=== PATIENT | female | born 1945 | race Caucasian/White ===

== ENCOUNTER 2016-10-23 11:00 | Outpatient (RCR) ==
[2016-02-13 15:54] VITALS: BMI 27.1
--- NOTE | 2016-10-16 14:34 | RS.OPPTDN ---
Subjective Date of Note: 10/16/16 Visit #: 8 Date of Evaluation: 09/17/16 Payer Source: MEDICARE Treatment Diagnosis: Right shoulder pain, shoulder stiffness, weakness Current Subjective/complaints:: Patient states she still cannot put on her shirts without help. States therapy has helped her some, but still cannot lift her arm forward (shoulder flexion). Pain Assessment - Pain Description Pain Location: right shoulder Current Pain Intensity: mild - Heat/Cryotherapy Treatment: Hot Pack ([id number] to the right shoulder prior to EX. Patient in supine. ) Interventions - Exercise/Activities/Manual Therapy Exercises/Activities: [id number]. PROM to right shoulder, limited range. Isometric shoulder abduction, adduction, and extension, multiple reps. 1# dumbell for short biceps curls, wrist flexion, extension, and supination/pronation. With UE supported, shoulder shrugs and scap retraction in supine. Assisted with light wand for chest press and IR/ER. Ball squeeze between hands for isometric IR, and short range ball lift. In sitting, shoulder shrugs, scap retraction. Table slides into forward flexion and abduction. AAROM of shoulder flexion and abduction. Total minutes of Exercise: 25mins Manual Therapy: NA HOME EXERCISE PROGRAM: Scapular retaction and shrugs, table slides, Codmans and modified cuff series with assist of caregiver. Isometric shoulder add with pillow. Biceps curl with light object. - Objective Findings Observations,measurements,etc.: Active right shoulder flexion 30 degrees or less in sitting. Active assisted to 40-45 degrees. MMT with right shoulder ER trace to poor minus, no improvement noted. - Charges Total Direct Minutes: 25mins Total Treatment Time: 45mins Procedures billed for this date of service:: HP, EX2 Assessment: Will reassess progress with PT next session. Patient Education: Home Exercise Program, Home Safety Comments: HEP with help of caregiver Patient demonstrates compliance with HEP?: Yes Short Term Goals Goal #1: Right shoulder active flexion to 60 degrees. Goal to be met by: 10/10/16 Progress towards Goal:: No Change Goal #2: Right shoulder strength 4-/5 in available range. Goal to be met by: 10/10/16 Goal #3: Patient and caregivers compliant with HEP. Goal to be met by: 10/10/16 Progress towards Goal:: Progressing Goal #4: Pain with AROM <5/10. 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 Goal to be met by: 11/03/16 Progress towards goal: Progressing Comments: with help of caregiver Goal #2: Score on UE functional index improved to less than 59% impairment. Goal to be met by: 11/03/16 Goal #3: R shoulder AROM improved for patient to perform most selfcare and ADL' s. Goal to be met by: 11/03/16 Progress towards goal: No Change Goal #4: Pt able to use right UE with minimal shoulder pain. Goal to be met by: 11/03/16 Progress towards goal: Progressing (Reports she has been able to us right UE some.) Plan PLAN OF CARE EXPIRES ON:: 11/03/16 ORDER # VISITS AND/OR THROUGH DATE: 11/03/16 PLAN: Continue Plan of Care (Continue this week and reassess progress and FOM.)
--- NOTE | 2016-10-18 12:01 | RS.OPPTDN ---
Subjective Date of Note: 10/18/16 Visit #: 9 Date of Evaluation: 09/17/16 Payer Source: MEDICARE Treatment Diagnosis: Right shoulder pain, shoulder stiffness, weakness Current Subjective/complaints:: Patient and caregiver both report patient seems to be doing better with very light activities at home. She states she still needs help with dressing. Pain Assessment - Pain Description Pain Location: right shoulder Current Pain Intensity: mild - Heat/Cryotherapy Treatment: Hot Pack ([id number] to the right shoulder prior to EX. Patient in supine. ) Interventions - Exercise/Activities/Manual Therapy Exercises/Activities: [id number]. PROM to right shoulder, limited range. Isometric shoulder abduction, adduction, and extension, multiple reps. 1# dumbell for short biceps curls, wrist flexion, extension, and supination/pronation. With UE supported, shoulder shrugs and scap retraction in supine. Assisted with light wand for chest press and IR/ER, multiple reps. Ball squeeze between hands for isometric IR, and short range ball lift. In sitting, shoulder shrugs, scap retraction. Table slides into forward flexion and abduction. Ball squeeze and lifts ball off lap. Wand for short range lifts from lap. AAROM of shoulder flexion and abduction. In standing, cuff series for right shoulder forward flexion, short abduction and extension 2s/10reps each. Gave patient and caregiver another copy of cuff series for HEP. Total minutes of Exercise: 28mins Manual Therapy: NA HOME EXERCISE PROGRAM: Scapular retaction and shrugs, table slides, Codmans and modified cuff series with assist of caregiver. Isometric shoulder add with pillow. Biceps curl with light object. - Charges Total Direct Minutes: 28mins Total Treatment Time: 48mins Procedures billed for this date of service:: HP, EX2 Assessment: Some improvement reported by patient and caregiver. Short Term Goals Goal #1: Right shoulder active flexion to 60 degrees. Goal to be met by: 10/10/16 Progress towards Goal:: No Change Goal #2: Right shoulder strength 4-/5 in available range. Goal to be met by: 10/10/16 Goal #3: Patient and caregivers compliant with HEP. Goal to be met by: 10/10/16 Progress towards Goal:: Progressing Goal #4: Pain with AROM <5/10. Goal to be met by: 12/09/15 Progress towards Goal:: Progressing Usp Goals Goal #1: Pt able to continue HEP to maintain level of function after discharge. Goal to be met by: 11/03/16 Progress towards goal: Progressing Goal #2: Score on UE functional index improved to less than 59% impairment. Goal to be met by: 11/03/16 Goal #3: R shoulder AROM improved for patient to perform most selfcare and ADL' s. Goal to be met by: 11/03/16 Progress towards goal: No Change Goal #4: Pt able to use right UE with minimal shoulder pain. Goal to be met by: 11/03/16 Progress towards goal: Progressing (Reports she has been able to us right UE some.) Plan PLAN OF CARE EXPIRES ON:: 11/03/16 ORDER # VISITS AND/OR THROUGH DATE: 11/03/16 PLAN: Continue Plan of Care (Reassessment of progress and FOM next session.)
--- NOTE | 2016-10-23 13:53 | RS.OPPTDN ---
Subjective Date of Note: 10/23/16 Visit #: 10 Date of Evaluation: 09/17/16 Payer Source: MEDICARE Treatment Diagnosis: Right shoulder pain, shoulder stiffness, weakness Current Subjective/complaints:: Patient states she is not sure if she is using the right UE more over the last few weeks. Pain Assessment - Pain Description Pain Location: right shoulder Current Pain Intensity: mild - Heat/Cryotherapy Treatment: Hot Pack ([id number] to the right shoulder prior to EX. Patient in supine. ) Interventions - Exercise/Activities/Manual Therapy Exercises/Activities: [id number]. PROM to right shoulder, limited range. Isometric shoulder abduction, adduction, and extension, multiple reps. 1# dumbell for short biceps curls, wrist flexion, extension, and supination/pronation. With UE supported, shoulder shrugs and scap retraction in supine. Assisted with light wand for chest press and IR/ER, multiple reps. Ball squeeze between hands for isometric IR, and short range ball lift. In sitting, shoulder shrugs, scap retraction. Table slides into forward flexion and abduction. Ball squeeze and lifts ball off lap. Wand for short range lifts from lap. AAROM of shoulder flexion and abduction. In standing, cuff series for right shoulder forward flexion, short abduction and extension 2s/10reps each. Patient and caregiver given another copy of cuff series for HEP. Total minutes of Exercise: 30mins Manual Therapy: NA HOME EXERCISE PROGRAM: Scapular retaction and shrugs, table slides, Codmans and modified cuff series with assist of caregiver. Isometric shoulder add with pillow. Biceps curl with light object. - Objective Findings Observations,measurements,etc.: Patient has a 3 point increase in Upper Extremity Functional Index to 21/80 or 73.75% deficit (was 18/80 or 77.5%) - Charges Total Direct Minutes: 30mins Total Treatment Time: 50mins Procedures billed for this date of service:: HP, EX2 Assessment: Patient has only had minimal improvement in functional activity level. Patient Education: Home Exercise Program, Education of Plan of Care Patient demonstrates compliance with HEP?: Yes Short Term Goals Goal #1: Right shoulder active flexion to 60 degrees. Goal to be met by: 10/10/16 Progress towards Goal:: No Change Goal #2: Right shoulder strength 4-/5 in available range. Goal to be met by: 10/10/16 Progress towards Goal:: No Change Goal #3: Patient and caregivers compliant with HEP. Goal to be met by: 10/10/16 Progress towards Goal:: Met Goal #4: Pain with AROM <5/10. Goal to be met by: 12/09/15 Progress towards Goal:: Progressing [facility] Goals Goal #1: Pt able to continue HEP to maintain level of function after discharge. Goal to be met by: 11/03/16 Progress towards goal: Progressing Goal #2: Score on UE functional index improved to less than 59% impairment. Goal to be met by: 11/03/16 Progress towards goal: Progressing Comments: Deficit improved from 77.5% to 73.75% Goal #3: R shoulder AROM improved for patient to perform most selfcare and ADL' s. Goal to be met by: 11/03/16 Progress towards goal: No Change Goal #4: Pt able to use right UE with minimal shoulder pain. Goal to be met by: 11/03/16 Progress towards goal: Progressing (Reports she has been able to use right UE with some activities.) Plan PLAN OF CARE EXPIRES ON:: 11/03/16 ORDER # VISITS AND/OR THROUGH DATE: 11/03/16 PLAN: Plan for Discharge (Discharge at this time with HEP as patient has plateaued with progress.)
--- NOTE | 2016-11-16 09:01 | RS.OPPTDC ---
Date of Discharge: 11/06/16 Date of Evaluation: 09/17/16 Number of Visits: 10 Treatment Diagnosis: Right shoulder pain, shoulder stiffness, weakness Current Complaints/Gains: Patient reports no improvement with use of right UE for self-care or dressing. States she may be a little better with pushing up from a chiar. States she is sleeping better. Reports no pain at rest. She is working on her HEP with a caregiver. Pain Assessment - Pain Description Pain Location: right shoulder Current Pain Intensity: mild Functional Outcome Measure UE Functional Index: 21 (21=73.75% impaired) - G Codes & Severity Modifier G Codes & Modifier: self care goal CK. self care D/C CL Source of G Code score: UE functional scale Interventions - Exercise/Activities/Manual Therapy Exercises/Activities: NA Manual Therapy: NA HOME EXERCISE PROGRAM: Scapular retaction and shrugs, table slides, Codmans and modified cuff series with assist of caregiver. Isometric shoulder add with pillow. Biceps curl with light object. - Objective Findings Observations,measurements,etc.: right shoulder exhibits poor to trace MMT with ER. Demonstrates active right shoulder flexion to 30 degrees at the most with marked scapula elevation. - Charges Total Direct Minutes: NA Total Treatment Time: NA Procedures billed for this date of service:: NA Assessment Assessment: Patient demonstrates minimal improvement. Patient and caregivers have HEP to continue. Short Term Goals Goal #1: Right shoulder active flexion to 60 degrees. Goal to be met by: 10/10/16 Progress towards Goal:: Not Met Goal #2: Right shoulder strength 4-/5 in available range. Goal to be met by: 10/10/16 Progress towards Goal:: Not Met Goal #3: Patient and caregivers compliant with HEP. Goal to be met by: 10/10/16 Progress towards Goal:: Met Goal #4: Pain with AROM <5/10. 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 Goal to be met by: 11/03/16 Progress towards goal: Partially Met Goal #2: Score on UE functional index improved to less than 59% impairment. Goal to be met by: 11/03/16 Progress towards goal: Not Met Goal #3: R shoulder AROM improved for patient to perform most selfcare and ADL' s. Goal to be met by: 11/03/16 Progress towards goal: Not Met Goal #4: Pt able to use right UE with minimal shoulder pain. Goal to be met by: 11/03/16 Progress towards goal: Partially Met (Reports she has been able to use right UE with some activities.) Plan Reason for Discharge:: Maximum Potential Met
== END 2016-11-13 ==
PROVIDERS: ATTEND Orthopaedic Surgery
DX: M25.511 Pain in right shoulder (principal)

== ENCOUNTER 2016-12-18 10:41 | Outpatient (CLI) ==
[2016-02-13 15:54] VITALS: BMI 27.1
--- NOTE | 2016-12-18 12:50 | DI ---
EXAM: Five views of the lumbar spine HISTORY: Lower back pain with sciatica. COMPARISON: CT abdomen pelvis 08/14/2016 FINDINGS: There is mild leftward curvature of the lumbar spine. There is scattered facet arthropath y. There is no acute compression fracture. There is 0.2 cm of retrolisthesis of L2 on L3 and 0.2 c m of L3 on L4. There is narrowing of the lumbosacral junction with 0.3 cm of anterolisthesis of L4 on L5. Soft tissues are unremarkable. IMPRESSION: 1. Multilevel degenerative disease with no acute compression fracture. 2. Retrolisthesis of L2 on L3, L3 on L4 and L4 on L5 of no greater than 0.3 cm. 3. Degenerative changes most pronounced at L5-S1. If further evaluation is clinically indicated, M RI may be obtained.
== END 2016-12-18 10:42 | disposition home or self-care (01) ==
LOC: RAD 10:41
PROVIDERS: ATTEND Family Medicine
DX: M54.40 Lumbago with sciatica, unspecified side (principal)

== ENCOUNTER 2017-11-17 10:54 | Inpatient (IN) | payer OTHER ==
[2017-11-17 11:00] VITALS: BMI 28.5
--- NOTE | 2017-11-17 11:42 | CT ---
EXAM: CT Head HISTORY: Dizzy COMPARISON: 12/23/2015 TECHNIQUE: CT head performed without contrast FINDINGS: There is no mass effect, midline shift, or intracranial hemmorhage. Rich white differenti ation is preserved. There is no extra-axial collection. The ventricles, sulci, and basal cisterns a re patent and symmetric. There is chronic ischemic disease of the white matter and cerebral volume l oss. There is no depressed calvarial fracture. The mastoid air cells are clear. The visualized para nasal sinuses are clear. There are intracranial atherosclerotic calcifications. IMPRESSION: 1. No acute intracranial abnormality. 2. Chronic ischemic disease of the white matter and cerebral volume loss.
--- NOTE | 2017-11-17 11:49 | CT ---
EXAM: CT of the chest without contrast. HISTORY: Cough. Swollen lower extremity. COMPARISON: 12/02/2015. TECHNIQUE: Contiguous axial images were obtained from the lung apices to the upper abdomen. Study w as performed without contrast. Sagittal and coronal reformats were reviewed. FINDINGS: There are postoperative changes of the right shoulder. There is a left-sided cardiac pace r. The lung windows show no lobar consolidation or effusion. The pulmonary fissure appears normal. The airways are widely patent. There is no pleural thickening. On axial image 40, there is a subpl eural nodular density adjacent to the minor fissure, measuring 4 mm. This is essentially unchanged i n comparison to the prior study. No other nodules are identified. The soft tissue windows demonstra te a normal size heart. There are minimal coronary calcifications. No significant mediastinal or hi lar adenopathy is seen. Limited views of the upper abdomen are available. There are multiple gallstones identified. There i s a small stable hypodensity in the right lobe of liver, measuring up to 9 mm. This measures fluid d ensity and is likely a small cyst. Degenerative disc disease is seen at all levels of the spine. There is a mild anterior compression f racture at T11, measuring approximately 50%. On the lumbar spine dated 12/18/2016, the compression m easured approximately 30%. IMPRESSION: 1. No acute pulmonary disease. 2. 4 mm subpleural nodule in the right middle lobe. This is essentially unchanged in comparison to p rior studies. No other nodules. 3. Coronary artery disease. 4. Cholelithiasis. 5. Compression fracture at T11 which is more prominent on the prior study, measuring approximately 5 0%. Previously, this measured 30% on 12/18/2016.
--- NOTE | 2017-11-17 12:54 | ED.PDOC ---
General ED Provider: Dr. JOHNIE ALCARAZ Chief Complaint: Weakness Stated Complaint: generalized weakness Time Seen by Physician: 11:00 (seen with entire staff) Mode of Arrival: Walk-In Information Source: Patient Exam Limitations: No limitations Primary Care Provider: LEANDER MCCOY Nursing and Triage Documentation Reviewed and Agree: Yes Reviewed sepsis parameters & appropriate labs ordered?: Yes System Inflammatory Response Syndrome: Not Applicable Sepsis Protocol: For patient's 13 years and over: Temp is 96.8 and below OR 101 and greater Pulse >90 BPM Resp >20/minute Acutely Altered Mental Status Are patient's symptoms suggestive of a new infection, such as: -Pneumonia -Skin, Soft Tissue -Endocarditis -UTI -Bone, Joint Infection -Implantable Device -Acute Abdominal Infection -Wound Infection -Meningitis -Blood Stream Catheter Infection -Unknown System Inflammatory Response Syndrome: Not Applicable Miscellaneous Complaint Exam - Complex/Multi-System Complaint/Exam Onset/Duration: today no motor dedicits noted Symptoms Are: Still present Episodes Lasting: Minutes Initial Severity: Mild Current Severity: None Location of Pain: none Pain Radiates to: no Associated Signs and Symptoms: Reports: Weakness, Cough Related History: Recent Illness Recent Echo/LV Function: No Respiratory Distress: None JVD Present: No Tachypnea Present: No Stridor Present: No Abdominal Findings: Present: Normal findings Glascow Coma Scale (see protocol): 15 Meningeal Signs Positive: No Focal Weakness: Present: None Focal Sensory Loss: Present: None Gait: Normal Gag Reflex Present: Yes Babinski Sign: Negative Right, Negative Left Skin Findings: Present: Normal findings Joint Swelling Present: No In-Dwelling Device Present: No Quality Indicators for Cardiac Chest Pain: EKG in 10min. Quality Indicators for AMI: EKG in 10min. Quality Indicator For Non-Traumatic Chest Pain/Syncope: EKG Performed Review of Systems - Review Of Systems Constitutional: Reports: No symptoms Eyes: Reports: No symptoms Ears, Nose, Mouth, Throat: Reports: No symptoms Respiratory: Reports: Cough Cardiac: Reports: No symptoms GI: Reports: No symptoms : Reports: No symptoms Musculoskeletal: Reports: No symptoms Skin: Reports: No symptoms Neurological: Reports: No symptoms Endocrine: Reports: No symptoms Hematologic/Lymphatic: Reports: No symptoms All Other Systems: Reviewed and Negative Past Medical History - Past Medical History Previously Healthy: Yes Endocrine: Reports: None Cardiovascular: Reports: Hypertension Respiratory: Reports: None Hematological: Reports: None Gastrointestinal: Reports: None Genitourinary: Reports: None Neuro/Psych: Reports: Schizophrenia Musculoskeletal: Reports: None Cancer: Reports: None Last Menstrual Period: HYSTERECTOMY - Surgical History General Surgical History: Reports: Pacemaker (Dr Styles), Unknown - Family History Family History: Reports: Unknown - Social History Smoking Status: Never smoker Hx Substance Use: No Alcohol Screening: None - Immunizations Tetanus Shot up to Date: Yes Physical Exam - Physical Exam Appearance: Well-appearing, No pain distress, Well-nourished Eyes: JENNA, EOMI, Conjunctiva clear ENT: Ears normal, Nose normal, Oropharynx normal Respiratory: Airway patent, Breath sounds clear, Breath sounds equal, Respirations nonlabored Cardiovascular: RRR, Pulses normal, No rub, No murmur GI/: Soft, Nontender, No masses, Bowel sounds normal, No Organomegaly Musculoskeletal: Normal strength, ROM intact, No edema, No calf tenderness Skin: Warm, Dry, Normal color Neurological: Sensation intact, Motor intact, Reflexes intact, Cranial nerves intact, Alert, Oriented Psychiatric: Affect appropriate, Mood appropriate Interpretation - Radiology Interpretation Radiology Interpretation By: Radiologist Radiology Results: No acute changes Physician Notification - Case Discussed Physician Notified: pmd Time of Notification: 12:55 (pt may go home) Critical Care Note - Critical Care Note Total Time (mins): 0 Course - Course Hematology/Chemistry: 11/17/17 11:25 11/17/17 11:25 Orders, Labs, Meds: Lab Review 11/17/17 11/17/17 11/17/17 11:25 11:25 11:25 WBC 10.04 RBC 3.75 L Hgb 13.1 Hct 37.4 MCV 99.7 H MCH 34.9 H MCHC 35.0 RDW Coeff of Chance 12.2 Plt Count 275 Immature Gran % (Auto) 0.5 Neut % (Auto) 71.8 Lymph % (Auto) 14.8 [place] % (Auto) 11.4 H Eos % (Auto) 0.8 Baso % (Auto) 0.7 Immature Gran # (Auto) 0.1 Neut # 7.2 H Lymph # 1.5 [place] # 1.1 Eos # 0.1 Baso # 0.1 Sodium 134 L Potassium 3.7 Chloride 97 L Carbon Dioxide 20 L Anion Gap 20.7 BUN 16 Creatinine 1.46 H Estimated GFR (MDRD) 35.00 BUN/Creatinine Ratio 10.95 Glucose 75 L Calcium 10.0 Total Bilirubin 0.4 AST 16 ALT 15 Alkaline Phosphatase 68 Total Creatine Kinase 65 Troponin I 0.0190 Total Protein 7.3 Albumin 3.6 Globulin 3.7 Albumin/Globulin Ratio 0.97 Procalcitonin < 0.05 TSH 2.404 Free T4 1.11 Urine Color Urine Clarity Urine pH Ur Specific [place] Urine Protein Urine Glucose (UA) Urine Ketones Urine Blood Urine Nitrite Urine Bilirubin Urine Urobilinogen Ur Leukocyte Esterase Urine Microscopic RBC Urine Microscopic WBC Ur Squamous Epith Cells Ur Renal Epithelial Cell Amorphous Sediment Urine Bacteria Hyaline Casts Urine Mucus Influenza A (Rapid) Influenza B (Rapid) 11/17/17 11/17/17 11:25 12:00 WBC RBC Hgb Hct MCV MCH MCHC RDW Coeff of Chance Plt Count Immature Gran % (Auto) Neut % (Auto) Lymph % (Auto) [place] % (Auto) Eos % (Auto) Baso % (Auto) Immature Gran # (Auto) Neut # Lymph # [place] # Eos # Baso # Sodium Potassium Chloride Carbon Dioxide Anion Gap BUN Creatinine Estimated GFR (MDRD) BUN/Creatinine Ratio Glucose Calcium Total Bilirubin AST ALT Alkaline Phosphatase Total Creatine Kinase Troponin I Total Protein Albumin Globulin Albumin/Globulin Ratio Procalcitonin TSH Free T4 Urine Color Yellow Urine Clarity Clear Urine pH 7.0 Ur Specific [place] 1.025 Urine Protein Negative Urine Glucose (UA) Negative Urine Ketones Negative Urine Blood Trace-intact Urine Nitrite Negative Urine Bilirubin Negative Urine Urobilinogen 0.2 Ur Leukocyte Esterase Trace Urine Microscopic RBC 0-2 Urine Microscopic WBC 2-5 Ur Squamous Epith Cells 0-2 Ur Renal Epithelial Cell 0-2 Amorphous Sediment Trace Urine Bacteria Trace Hyaline Casts 0-2 Urine Mucus Trace Influenza A (Rapid) Negative by naat Influenza B (Rapid) Negative by naat Orders Category Date Time Status EKG-(ED ONLY) Stat CARDIO 11/17/17 10:57 Ordered NPO REMINDER: IMAGING ONCE CARE 11/17/17 12:16 Ordered BLOOD CULTURE Stat LAB 11/17/17 11:25 Received CBC W/ AUTO DIFF Stat LAB 11/17/17 11:25 Completed COMPREHENSIVE METABOLIC PANEL Stat LAB 11/17/17 11:25 Completed CREATINE KINASE Stat LAB 11/17/17 11:25 Completed FLU A/B MOLECULAR Stat LAB 11/17/17 11:25 Completed FREE T4 (FREE THYROXINE) Stat LAB 11/17/17 11:25 Completed MOLECULAR GROUP A STREP Stat LAB 11/17/17 11:25 Completed PROCALCITONIN Stat LAB 11/17/17 11:25 Completed THYROID STIMULATING HORMONE Stat LAB 11/17/17 11:25 Completed TROPONIN I Stat LAB 11/17/17 11:25 Completed URINALYSIS C & S IF INDICATED Stat LAB 11/17/17 10:[address] CHEST W/O CONTRAST Stat RADS 11/17/17 10:[address] HEAD W/O CONTRAST Stat RADS 11/17/17 10:58 Completed Vital Signs: Temp Pulse Resp BP Pulse Ox 11/17/17 10:56 98.3 F 86 20 121/73 97 Departure - Departure Time of Disposition: 12:54 Disposition: HOME SELF-CARE Discharge Problem: Weakness generalized Instructions: Weakness (ED) Condition: Good Pt referred to PMD for follow-up: Yes IPMP verified?: Yes Allergies/Adverse Reactions: Allergies benztropine mesylate [From Cogentin] Allergy (Severe, Unverified 11/17/17 11:12) difficulty breathing DENNISE Inhibitors Adverse Reaction (Mild, Unverified 11/17/17 11:12) Cough shrimp Allergy (Severe, Uncoded 11/17/17 11:12) sick to stomach Home Medications: Ambulatory Orders Calcium Carbonate [Calcium] 600 mg PO DAILY 07/08/15 Cholecalciferol (Vitamin D3) [D3-2000] 2,000 unit PO DAILY 07/08/15 Metoprolol Tartrate [Lopressor] 50 mg PO BID 07/08/15 Atorvastatin Calcium 10 mg PO DAILY 11/17/17 Ciclopirox [Penlac] 8 ml EXTERNAL BEDTIME 11/17/17 Clonidine 0.3 mg [Catapres TTS-3] 1 patch TP WEEKLY 11/17/17 Levothyroxine Sodium 50 mcg PO DAILY 11/17/17 Triamterene/Hydrochlorothiazid [Dyazide 37.5-25 Capsule] 1 mg PO DAILY 11/17/17
[2017-11-17] MEDS ORDERED: FLUPHENAZINE DECANOATE IJ SCH (13:30)
[2017-11-17] MEDS ORDERED: BENADRYL PO PRN (14:03)
[2017-11-17] MEDS: SODIUM CHLORIDE 1,000 ML IV SCH (16:30)
[2017-11-17] MEDS: LOPRESSOR PO SCH (20:03)
[2017-11-17] MEDS ORDERED: CICLOPIROX EXTERNAL SCH (21:00)
[2017-11-17] MEDS ORDERED: NON-FORMULARY MEDICATION (Amantadine Hcl [Amantadine] 100 MG) PO SCH (21:00)
[2017-11-18] MEDS: SODIUM CHLORIDE 1,000 ML IV SCH ×2 (03:33→16:01)
[2017-11-18] MEDS: CALCIUM 500 + VIT D 200 MG TABLET PO SCH (08:16)
[2017-11-18] MEDS: LIPITOR PO SCH (08:16)
[2017-11-18] MEDS: ZANTAC PO SCH (08:17)
[2017-11-18] MEDS: SYNTHROID PO SCH (08:17)
[2017-11-18] MEDS: SYMMETREL PO SCH ×2 (08:17→21:03)
[2017-11-18] MEDS: VITAMIN D PO SCH (08:17)
[2017-11-18] MEDS: LOPRESSOR PO SCH ×2 (08:17→21:03)
[2017-11-18] MEDS ORDERED: NON-FORMULARY MEDICATION (Calcium Carbonate [Calcium] 600 MG) PO SCH (09:00)
[2017-11-18] MEDS ORDERED: DYAZIDE PO SCH (09:00)
--- NOTE | 2017-11-18 11:20 | RS.PTINEVL ---
Subjective - Patient information Date of Evaluation: 11/18/17 Date of Arrival on Unit: 11/17/17 Admitted From:: Home Diagnosis: generalized weakness Usual Living Arrangement: Alone Living Arrangement Comments: states she has caregivers around the clock Home Environment: House, Stairs (few), No rail Medical History: Hypertension Medical History Comments:: schizophrenia, CAD, chronic compression fx T11, pacemaker LATEX ALLERGY?: No Surgical History Comments:: shld surgery in 2014 Medications: see chart Subjective Information/ Patient Comments:: pt states she is shaky. States she has no pain at this time and is agreeable to work with PT - Level of function Prior to this admission, the patient could do the following:: Independent Ambulation Abilities prior to this admission: pt and caregiver states that she was walking independently in the home prior to admit, and required some assist with ADL's Interventions - Objective Patient Orientation: Person, Place Current Interventions: IV's, Telemetry Observation: pt with significant forward head posture with rounded shlds and increased thoracic kyphosis Range of Motion - ROM Right Upper Extremity AROM: Moderate limitation (R shld flex and abd limited due to previous shld surgery.) Left Upper Extremity AROM: WFL's Right Lower Extremity AROM: WFL's Left Lower Extremity AROM: WFL's Muscle Strength - Muscle Strength Right Upper Extremity Strength: Severe Weakness (R shld flex 2-/5, elbow flex/ ext 3+/5,) Left Upper Extremity Strength: Mild Weakness (shld flex 4-/5, elbow flex/ext 4/5 ) Right Lower Extremity Strength: Mild Weakness (hip flex 4-/5, knee flex/ext 4/5 , ankle Df/PF 4/5) Left Lower Extremity Strength: Mild Weakness (hip flex 4-/5, knee flex/ext 4/5, ankle Df/PF 4/5) Sensation - Sensation Right Upper Extremity Sensation: Intact/Normal Left Upper Extremity Sensation: Intact/Normal Right Lower Extremity Sensation: Intact/Normal Left Lower Extremity Sensation: Intact/Normal Palpation Palpation Findings: None/Normal Balance - Sitting Balance and Reactions Static Sitting Balance: Fair Dynamic Sitting Balance: Poor Sitting Equilibrium Reactions: Delayed Left, Delayed Right Sitting Protective Reactions: Delayed Left, Delayed Right - Standing Balance and Reactions Static Standing Balance: Poor Dynamic Standing Balance: Poor Standing Equilibrium Reactions: Delayed Left, Delayed Right Standing Protective Reactions: Delayed Left, Delayed Right - Comments Balance Assessment Comments: pt pushes backward while standing requires mod assist to prevent pt from losing balance backward. pt unable to maintain dyn sitting balance while reaching across midline. Functional Mobility - Bed Mobility Rolling R/L: Mod Assist, 1 person assist Supine to Sit: Mod Assist, 1 person assist - Transfers Sit to Stand: Min Assist, Mod Assist, 1 person assist Stand to Sit: Mod Assist, 1 person assist - Safety Awareness Safety Awareness: Poor Ambulation - Ambulation Assistive Device Used: Rolling Walker Orthotic/Prosthetic Device: No Distance: 5 steps Assistance needed with Ambulation: Mod Assist, 1 person assist Gait Deviations: Narrow Based gait, Shuffling gait, Short stride Ambulation Comments: pt pushes backward during amb, pt impulsive and does not follow commands to wait before sitting or to reach back for the chair. Factors Affecting Ambulation: Decreased Balance, Weakness, Decreased Safety, Cognitive Status, Limited Endurance Treatment time - Time with patient Total treatment time: 28 Patient Education - Education Patient Education: Activity Modification, Education of Plan of Care Teaching Recipient: Patient Teaching Methods: Discussion (Discussion with patient and paid caregiver re: POC and to call nurse and let nurse assist back to bed) Assessment - Assessment Problem List:: Decreased level of function, Requires training/education, Decreased safety/Risk of falls, Weakness, Cognitive status limits abilities Rehab Potential: Good Further Therapy Indicated?: Yes Evaluation Complexity: HISTORY: Medium (weakness, HTN, schizophrenia), EXAM OF BODY SYSTEMS: Medium (balance, strength, gait), CLINICAL PRESENTATION: Medium ( evolving), CLINICAL DECISION MAKING: Medium Short Term Goals GOAL #1: pt demonstrate independence with bed mobility Goal to be met by: 11/21/17 GOAL #2: pt transfer sup to/from sit to/from stand min to CGA x 1 Goal to be met by: 11/21/17 GOAL #3: pt amb with AAD 50ft with min x 1 with no LOB Goal to be met by: 11/21/17 Oncology Coordinator Goals GOAL #1: pt transfer sup to/from sit to/from stand CGA Goal to be met by: 11/23/17 GOAL #2: pt amb with AAD functional household distance with CGA Goal to be met by: 11/23/17 GOAL #3: Improved BLE strength 4to 4+/5 and independent with HEP Goal to be met by: 11/23/17 Plan Plan of Care: Therapeutic EX, Therapeutic Activity, Self-Care/Home Management Other:: gait training Frequency of Treatment: 1-2 X day, as tolerated Duration of Treatment: 5 days Anticipated Discharge Destination: Home Has the Physician been added for Co-signature?: Yes
[2017-11-18] MEDS ORDERED: CICLOPIROX EXTERNAL SCH (21:00)
[2017-11-19] MEDS: SODIUM CHLORIDE 1,000 ML IV SCH (03:23)
[2017-11-19] MEDS: ZANTAC PO SCH (05:51)
[2017-11-19] MEDS: SYNTHROID PO SCH (05:51)
[2017-11-19] MEDS: SYMMETREL PO SCH (09:21)
[2017-11-19] MEDS: VITAMIN D PO SCH (09:22)
[2017-11-19] MEDS: CALCIUM 500 + VIT D 200 MG TABLET PO SCH (09:22)
[2017-11-19] MEDS: LIPITOR PO SCH (09:22)
[2017-11-19] MEDS: LOPRESSOR PO SCH (09:22)
[2017-11-19 10:34] VITALS: BP 145/84; TEMP 97.8
--- NOTE | 2018-02-17 10:21 | HP ---
CHIEF COMPLAINT: She is weak and she can't walk. DISCUSSION: This is a 72 year old lady with a history of paranoid schizophrenia as well hypertension, hyperlipidemia, hypothyroidism who presented to the emergency department for muscle weakness. She was thought to have generalized weakness over her whole body and she could not ambulate. Her history is significant for having an injection of her neuroleptic medication yesterday. The long term care administrator says that every since she has had this injection (Prolixin?) she has not been able to walk and has been weak. There has been no fever or chills, nausea or vomiting. She was seen in the emergency department by Dr. Maher who felt that was ill enough to be admitted because of muscle weakness and inability to ambulate therefore she was admitted to my services. PAST MEDICAL HISTORY: MEDICATIONS: Calcium Lopressor Atorvastatin Clonidine Thyroid replacement Dyazide ALLERGIES: Cogentin Esteban inhibitors shrimp PAST MEDICAL HISTORY: History of paranoid schizophrenia History of hypertension Hyperthyroidism PAST SURGICAL HISTORY: History of hysterectomy Pace replacement by Dr. Styles SOCIAL HISTORY: No history of alcohol, tobacco or illicit drug use. She does have a long term care administrator. FAMILY HISTORY: Reviewed and thought not to be pertinent to discussion. REVIEW OF SYSTEMS: No headaches, visual changes, tinnitus, hemoptysis, blood in the stool, urinary symptoms or seizures. Muscle weakness but no pain. PHYSICAL EXAMINATION: V/S: Temperature 98.3, pulse 86, respiratory rate 20,blood pressure 121/73 and pulse oximetry is 97%. GENERAL: 72 year old lady who appears her stated age. She is alert and oriented times three. She has a quite a bit of difficulty moving her muscles. HEENT: Pupils are round. NECK: Supple. CHEST: Clear. CARDIOVASCULAR: Regular rate and rhythm. ABDOMEN: Soft, nontender. EXTREMITIES: Distal extremities without cyanosis or edema. Appears to have some rigidity in her muscles with inability to move them. ASSESSMENT: 1. Muscle pain and weakness, questionable related to the neuroleptic medicine she was given yesterday and another possibility would be myositis from her statin drug. PLAN: 1. Admission 2. We will have her ambulate 3. Will give fluids 4. As her initial renal function revealed a GFR of 35 so we will give fluids to hydrate her and see if this improves. Please see orders. MTDD
--- NOTE | 2018-02-17 10:27 | DS ---
PRINCIPAL DIAGNOSIS: 1. Profound muscle weakness,question injection secondary to neuroleptic. DISCUSSION: This is a 72 year old lady with a history of paranoid schizophrenia as well hypertension, hyperlipidemia, hypothyroidism who presented to the emergency department for muscle weakness. She was thought to have generalized weakness over her whole body and she could not ambulate. Her history is significant for having an injection of her neuroleptic medication yesterday. The healthcare applications analyst says that every since she has had this injection (Prolixin?) she has not been able to walk and has been weak. There has been no fever or chills, nausea or vomiting. She was seen in the emergency department by Dr. Maher who felt that was ill enough to be admitted because of muscle weakness and inability to ambulate therefore she was admitted to my services. CLINICAL COURSE: . With IV fluids her renal function improved and muscles pain and weakness did improved. She was able to ambulate. At this point we felt the patient was stable for discharged. She will be discharged home with activity as tolerated. She will have [facility] health. I am going to see her in one week on November 22. Please see orders. MTDD
== END 2017-11-19 14:42 | disposition home or self-care (01) | DRG 556 ==
LOC: ED 10:54 → MEDSURG A 13:30
PROVIDERS: ADMIT Family Medicine; ATTEND Family Medicine
DX: M62.81 Muscle weakness (generalized) (principal); T43.3X5A Adverse effect of phenothiazine antipsychotics and neuroleptics, initial encounter; R60.0 Localized edema; R26.2 Difficulty in walking, not elsewhere classified; R05 Cough; I10 Essential (primary) hypertension; Z95.0 Presence of cardiac pacemaker; Z79.899 Other long term (current) drug therapy
CPT/HCPCS: 36415; 80053; 81001; 82550; 84145; 84439; 84443; 84484; 85025; 85651; 87040; 87502; 87651; 93005; 93010; 99284